=== PATIENT | female | born 1950 | race Caucasian/White ===

== ENCOUNTER → 2016-12-02 | Outpatient (CLI) | payer OTHER, MEDICARE ==
[~2016-12-02] VITALS: Ht 177.8 cm; Wt 152.8 kg
[~2016-12-02] MED LIST: ACETAMINOPHEN325 M1 PO; ACIDOPHILUS1 EAC3 PO; ADVAIR 100-501 EACH INH; ADVAIR 250-501 EACH; ADVAIR 250-501 EACH INH; ADVAIR HFA 115-12 GM INH; ADVAIR HFA115 MCG/21 INH; ALBUTEROL; ALBUTEROL INH INH; ALDACTONE25 MG; ALDACTONE50 MG PO; ALKA-SELTZER P1 EAC2 PO; ALLEGRA180 MG PO; ALLOPURINOL 30300 M1; ALLOPURINOL 30300 M2 PO; AMMONIUM LACTA225 GM TP; APAP500 PO; ASPIRIN81 M2 PO; AVELOX 400 MG400 MG PO; AYR; AYR50 ML NASAL; AYR50 ML NS; B12INJ IM; BACTRIM DS TAB1 EACH; BACTRIM DS TAB1 EACH PO; BIOTENE DRY MO237 ML MM; BISACODYL SUPP10 MG; BISACODYL SUPP10 MG RE; BUMETANIDE2 M1; BUMETANIDE2 M1 PO; CARVEDILOL3.125 MG PO; CEFTRIAXONE2 G1 IV PUSH; CHANTIX 0.5 MG PO; CHANTIX1 MG; CHANTIX1 MG PO; CHLORASEPTIC177 ML PO; CIPRO500 M1 PO; COLACE 100 MG100 MG; COLACE 100 MG100 MG PO; COLACE100 MG PO; COUMADIN 1MG TAB1 M1 PO; COUMADIN 2 MG TA2 M1 PO; COUMADIN 3 MG TA3 M1 PO; COUMADIN 3 MG TA3 MG PO; COUMADIN 4 MG TA4 M1 PO; COUMADIN 5 MG TA5 M1 PO; COUMADIN PO; COUMADIN6 MG PO; CYCLOBENZAPRINE TRANSDERM; DEEP SEA NASAL44 M1 INH; DEEP SEA NASAL44 M1 NASAL; DIAPER RASH57 GM TP; DIGOXIN; DIGOXIN PO; DITROPAN XL10 M1 PO; DOLOPHINE HCL5 MG PO; DOXYCYCLINE 10100 M2 PO; DUONEB 2.5-0.5 M3 ML; DUONEB 2.5-0.5 M3 ML INH; EUCERIN CREME57 GM TOP; FERROUS SULFAT325 M1 PO; FLONASE 0.05%50 MCG INH; FOLIC ACID1 MG PO; FUROSEMIDE 80 M80 MG PO; FUROSEMIDE20 MG/2 ML IV; HYDROCERIN CREA1 JAR TOP; HYDROCODONE-APA1 TA1 PO; HYDROCORTISONE30 G9; INDAPAMIDE2.5 MG PO; IPRATROPIUM; IRON325 PO; K-DUR 20 MEQ T20 MEQ PO; KLOR-CON 1010 MEQ PO; KLOR-CON M2020 MEQ PO; LACTAID EXT4500 UNIT PO; LANOXIN 0.120.125 M1 PO; LASIX 40 MG TAB40 M1 PO; LASIX 40 MG TAB40 M2 PO; LASIX 80 MG TAB80 M1 PO; LASIX 80 MG TAB80 MG PO; LASIX PO; LIORESAL 10 MG10 MG; LIORESAL 10 MG10 MG PO; LOCOID 0.1% CRE15 GM TP; LOPERAMIDE 2 MG2 M1 PO; LORATIDINE 10 M10 M1 PO; MAGNESIUM4 GM/100 M IV; MELOXICAM7.5 MG PO; METHADONE HCL 110 MG PO; METHADONE HCL5 MG PO; METOLAZONE 5 MG5 M1; METOLAZONE 5 MG5 M1 PO; METOPROLOL SUCC25 M1 PO; MILK OF MA2400 MG/10 PO; MINIPRIN81 MG PO; MIRALAX255 GM PO; MOBIC7.5 M1 PO; MUCINEX D TABL1 EAC1 PO; MUCINEX DM TABL1 TA1; MUCINEX TA600 MG/TA1 PO; MUCINEX TA600 MG/TA2 PO; MUCINEX TA600 MG/TAB; MUCINEX600 MG PO; MULTIVITAMIN PO; NUCYNTA100 MG PO; NUCYNTA75 MG PO; NYSTATIN1 EA10 MC; NYSTATIN1 EAC9; NYSTATIN15 GM TOP; NYSTATIN15 GM TP; OMEPRAZOLE 20 M20 M1 PO; OMEPRAZOLE 20 M20 MG PO; OMEPRAZOLE20 M2 PO; OPANA ER15 M1 PO; OXCARBAZEPINE150 MG PO; OXCARBAZEPINE300 MG PO; OXYBUTYNIN 5 MG5 M1 PO; OXYBUTYNIN ER 55 M1 PO; OXYCONTIN CR 1010 M1 PO; OXYCONTIN PO; OXYCONTIN30 MG PO; OXYIR5 MG PO; PEPCID40 MG; PEPCID40 MG PO; POLYETHYLENE G255 GM; POTASSIUM20 PO; PREDNISONE; PREDNISONE 20 M20 MG PO; PROAIR HFA8.5 GM IH; PROAIR HFA8.5 GM PO; PROVENTIL HFA6.7 G1 INH; REQUIP 1 MG TABL1 M1 PO; REQUIP XL2 MG PO; REQUIP2 MG PO; RESTORIL15 M1 PO; RESTORIL15 MG PO; RESTORIL30 MG PO; ROPINIROLE PO; SALINE MIST45 ML NASAL; SALINE NASAL SP30 ML NS; SENNA PLUS TAB1 EACH PO; SENNA PO; SLOW-MAG64 MG PO; SPIRIVA; SPIRIVA INH; SPIRONOLACTONE25 M1 PO; SPIRONOLACTONE50 MG PO; TOPROL XL25 MG PO; TRAMADOL 50 MG50 MG PO; TRILEPTAL 300300 MG PO; TRILEPTAL150 MG PO; TRILEPTAL300 MG PO; TYLENOL325 MG PO; VENTOLIN HFA 1818 GM INH; VOLTAREN GEL 1100 G1 TOP; VOLTAREN GEL 1100 G2 TOP; VOLTAREN100 GM TP; X VIATE 40%; [UNRECOGNIZED DRUG - CODE] PO; [UNRECOGNIZED DRUG - OTHER]; [UNRECOGNIZED DRUG - OTHER] PO; [UNRECOGNIZED DRUG - OTHER] PO; [UNRECOGNIZED DRUG - OTHER] PO; [UNRECOGNIZED DRUG - OTHER] TOP
--- NOTE | ~2016-12-02 | HC ---
[facility] [place] [address] CONSULTATION Name: ADRIEL LOUIS Room #: REG SUSAN Iglesia.#: [id number] Admission: 12/02/16 Attend Phys: Nito Whipple MD Discharge: Date of : 50 Report #: [id number] THIS REPORT FOR: //name// CC: Nito Whipple DATE OF SERVICE: 12/02/2016 TYPE OF REPORT: Wound care outpatient visit. PRIMARY CARE PHYSICIAN: Nito Whipple M.D. CHIEF COMPLAINT: Right knee wound. HISTORY OF PRESENT ILLNESS: This is a 66-year-old white female who is seen in the infusion clinic for a chronic nonhealing wound to her right knee. The patient is currently receiving IV infusion of Lasix, which she does on a weekly basis. The patient has a nonhealing wound on her right knee, which is nearly healed; however, due to her significant lymphedema, is still draining profusely according to herself and her home health nurses. The patient denies fevers, chills, chest pain, shortness of breath, nausea, vomiting or diarrhea. The patient denies any recent illnesses or concerns. CURRENT MEDICATIONS: Reviewed. DRUG ALLERGIES: Multiple, please see the medication list. PHYSICAL EXAMINATION: VITAL SIGNS: Stable. The patient is afebrile. GENERAL: This is alert and oriented times 3, morbidly obese white female who is in no acute distress. HEENT: Normocephalic and atraumatic. Mucous membranes are moist. Pupils are round. Sclerae white. LUNGS: Nonlabored respirations. ABDOMEN: Obese. EXTREMITIES: The patient has 4+ lymphedema, bilateral lower extremities. Evaluation of the right lower extremity reveals over the area of the dorsal part of the knee, a small approximately 0.2 x 0.2 x 0.1 cm wound, which is draining serosanguineous fluid. There are no signs of erythema, warmth or cellulitis. There are no signs or tenderness. There is no tunneling, tracking or undermining. Distal neurovascular otherwise intact. Wound itself 100% granulated. NEUROLOGICAL: Cranial nerves 2 through 12 grossly intact. Motor and sensory are grossly intact. WOUND CARE COURSE: I spoke with the patient at this time given that she is still having persistent drainage and we have recently just in the past [address] [address] CONSULTATION Name: ADRIEL LOUIS Room #: REG SUSAN Short#: [id number] Admission: 12/02/16 Attend Phys: Nito Whipple MD Discharge: Date of : 50 Report #: [id number] started just gauze and ABD and gentamicin ointment to the top over the wound itself to cover them with a 4 x 4s and gauze, changed on a daily was by home health nurses. I will see the patient back in 2 weeks up in the infusion clinic itself. IMPRESSION: 1. 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 2. Chronic lymphedema, bilateral lower extremities. 3. Morbid obesity. 4. Congestive heart failure. PLAN: Described in length as above. I appreciate the ability to see this patient and our plan is to see her again in 2 weeks. <ELECTRONICALLY SIGNED> By: Leon Garcia MD 12/12/16 0824 [id number] Leon Garcia MD /nt
[2016-12-02 10:01] VITALS: BP 124/74
[2016-12-02 16:00] VITALS: BP 124/72
== END ==
LOC: OPONC 02:03
DX: R60.9 Edema, unspecified (principal)
CPT/HCPCS: 95000; 95001

== ENCOUNTER → 2016-12-09 | Outpatient (CLI) | payer OTHER, MEDICARE ==
[2016-12-09 08:30] VITALS: BP 111/74
== END ==
LOC: OPONC 05:21
DX: R60.9 Edema, unspecified (principal)
CPT/HCPCS: 95000; 95001

== ENCOUNTER → 2016-12-12 | Outpatient (CLI) | payer OTHER, MEDICARE ==
--- NOTE | ~2016-12-12 | HPC ---
[facility] [place] [address] [place] [address] [place] [address] PAIN MANAGEMENT CONSULTATION Name: ADRIEL LOUIS Room #: REG SHARAChucky Short#: [id number] Admission: 12/12/16 Attend Phys: Jovan Bolivar DO Discharge: Date of : 50 Report #: [id number] THIS REPORT FOR: //name// CC: Nito Bolivar SUBJECTIVE: The patient is a 66-year-old female well known to the pain clinic, typically treated for neuropathic pain, requiring complex medication management, bipedal neuropathy. She is morbidly obese with congestive heart failure and dramatic lymphedema. She has been stable on methadone 5 mg 1 in the morning, 2 at night; p.r.n. tramadol with rare use of hydrocodone. She returns to the pain clinic today. She has been having a little more difficulty. She apparently developed lesion on her right anterior block. This was excised some 6 weeks ago. Wound healing is quite slow, complicated by her massive lymphedema. She is following with wound clinic. Notes pain is 7-8 on a 0-10 visual analog scale. Notes medications generally provide sufficient analgesia for her to participate in activities of daily living. PHYSICAL EXAMINATION: VITAL SIGNS: A 66-year-old female, BMI is greater than 50 kilograms per meter squared. Subjective pain score 7-8 on a 0-10 visual analog scale. Blood pressure 154/78, pulse 97, respirations 16. NEUROLOGIC: Alert and oriented to person, place and time, judged to be a reasonable historian. He can rise from the chair, has an antalgic gait, again significant lower extremity lymphedema. We reviewed the fact that opiate medications are being used to provide analgesia adequate to support activities of daily living, not attempting to achieve a specific pain score on the 0-10 Visual Analog Scale. The current opiate medications are providing sufficient analgesia to allow the patient to participate in activities of daily living. The patient is not exhibiting any aberrant behavior suggestive of drug diversion. The patient is not having any adverse reactions to medications. The patient is not suffering from daytime somnolence or mental acuity changes. The patient is managing opiate-induced constipation with appropriate [id number] agents and dietary considerations. The patient was counseled on concern for caution with operating a motor vehicle while using opiate medications. A physical exam was performed and the patient's functional status was evaluated. All patients with back pain were advised against the bed rest greater than 4 days and were advised to return to normal activities. Pain score assessment was noted and the treatment plan was reviewed with the patient. All current medications, both prescribed and OTC were reviewed and reconciled on the electronic medical record. Tobacco screening was accomplished and smoking cessation was advised when indicated. BMI was noted and diet/exercise modification was recommended for all patients following outside normal parameters. I reviewed with the patient today their responsibilities to [address] [address] PAIN MANAGEMENT CONSULTATION Name: ADRIEL LOUIS Room #: REG SUSAN Short#: [id number] Admission: 12/12/16 Attend Phys: Jovan Bolivar DO Discharge: Date of : 50 Report #: [id number] prescription medications, reviewed their responsibility to utilize medications only as prescribed by the physician. They are to seek and receive pain medications only from 1 physician group ( [facility]). They are to use 1 pharmacy and keep the clinic informed if they change pharmacies. Their responsibilities include making followup visits in a timely fashion and to avoid abrupt discontinuation of medication usage. Their responsibilities further include bringing their medications (bottles from the pharmacy with residual pills) to the visit for possible confirmation of pill counts and the patient understands it is their responsibility to submit to random drug screens to ensure both that the medications prescribed are present, and that no other controlled substances are present. All prescriptions provided today were generated electronically. ASSESSMENT: Neuropathic pain requiring complex medication management, primarily affecting bilateral lower extremities, massive lymphedema, requiring complex medication management. RECOMMENDATION: After discussion with the patient today, we have elected to continue current medications including methadone 5 mg 1 in the morning, 2 at night; tramadol 50 mg up to 4 times a day, written for 2 refills; hydrocodone 7.5/325, dispensed 120 tablets for a total of 3 months; baclofen 10 mg 4 times a day, written for 5 refills; oxcarbazepine at bedtime 300 mg, written for 2 refills. I wrote 3 discrete prescriptions for the methadone. Follow up in 3 months for reevaluation, earlier if needed. <ELECTRONICALLY SIGNED> By: Jovan Bolivar DO 12/15/16 1228 [id number] Jovan Bolivar DO /nt
[2016-12-12 13:49] VITALS: BP 154/78
== END | disposition home or self-care (01) ==
LOC: PAIN 07:05
DX: G62.9 Polyneuropathy, unspecified (principal); E66.01 Morbid (severe) obesity due to excess calories; I50.9 Heart failure, unspecified; Q82.0 Hereditary lymphedema

== ENCOUNTER → 2017-02-10 | Outpatient (CLI) | payer OTHER, MEDICARE ==
--- NOTE | ~2017-02-10 | HC ---
[facility] [place] [address] CONSULTATION Name: ADRIEL LOUIS Room #: REG SUSAN ErwinLi.#: [id number] Admission: 02/10/17 Attend Phys: Nito Whipple MD Discharge: Date of : 50 Report #: [id number] THIS REPORT FOR: //name// CC: Nito Whipple CHIEF COMPLAINT: Right lower extremity lymphedema and ulceration and wound. HISTORY OF PRESENT ILLNESS: This is a 66-year-old white female with history of morbid obesity and massive lymphedema of bilateral lower extremities, who has a chronic nonhealing wound around the right knee with significant concern for underlying infection with a total knee joint. The patient has currently been receiving IV Lasix infusions. I have been following her approximately every 2 weeks here at the hospital. The patient today states she has increased pain associated with the wound as well as increase in her overall swelling in that right leg especially around the knee. The nurses were concerned that they thought the wound had a slight odor; however, the patient denies this on her own. The patient states that she has had no fevers or chills. However, the patient states that she does not get fevers and chills evening when she has bad infection. The patient is currently on chronic doxycycline 100 mg b.i.d. The patient denies chest pain, shortness of breath, nausea, vomiting or diarrhea. The patient denies any other associated symptoms. PAST MEDICAL HISTORY: Reviewed. CURRENT MEDICATIONS: Reviewed. DRUG ALLERGIES: MULTIPLE, I REVIEWED THE PATIENT'S MEDICATION LIST. PHYSICAL EXAMINATION: VITAL SIGNS: Stable. The patient is afebrile. GENERAL: This is an alert and oriented x 3, pleasant white female who is in mild distress secondary to pain. HEENT: Normocephalic, atraumatic. Mucous membranes are moist. Pupils are round. LUNGS: Show nonlabored respirations. ABDOMEN: Obese, soft, nontender. EXTREMITIES: Evaluation of right lower extremity reveals 4+ lymphedema with weeping coming from the right medial knee wound. The weeping is serous in nature. There are no signs of any purulence or odor that I can appreciate. The wound depths approximately 3 cm. Periwound is mildly erythematous, but not significantly warm. There is no actual tenderness to palpation around that site. There is no fluctuance. Distal neurovascular is intact. NEUROLOGIC: Cranial nerves 2-12 grossly intact. Motor and sensory grossly intact. WOUND CARE COURSE: I spoke with the physician, Dr. Wihpple, reviewed the findings with him. At this time, he said he will contact the patient and go [address] [address] CONSULTATION Name: ADRIEL LOUIS Room #: REG SUSAN Short#: [id number] Admission: 02/10/17 Attend Phys: Nito Whipple MD Discharge: Date of : 50 Report #: [id number] visit her at her nursing facility within the next 1-2 days. The patient had been possibly requesting a hospitalization; however, he would like to see her first and evaluate at that time. The patient has requested possible new hospital bed or mattress to be delivered at home so that could be lowered to the floor to help her get in and out of bed more easily. We will look into this hospital bed with new mattress through [employer]. IMPRESSION: 1. Chronic nonhealing wound to the right medial knee limited to subcutaneous fat layer. 2. 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 3. Morbid obesity. 4. Massive bilateral lower extremity lymphedema. PLAN: We will continue on the doxycycline has previously setup. We will continue with dressing changes, which is dry gauze per home health nurses. Dr. Whipple will see the patient later this week and will follow the patient. If patient does get admitted to [facility], which is her hospital of choice, I will follow her there. By: [id number] Leon Garcia MD /nt
[2017-02-10 08:00] VITALS: BP 142/85
== END ==
LOC: OPONC 06:26
DX: I89.0 Lymphedema, not elsewhere classified (principal); E66.01 Morbid (severe) obesity due to excess calories
CPT/HCPCS: 95000; 95001

== ENCOUNTER → 2017-02-24 | Outpatient (CLI) | payer OTHER, MEDICARE ==
[2017-02-24 09:00] VITALS: BP 135/87
== END ==
LOC: OPONC 06:28
DX: I89.0 Lymphedema, not elsewhere classified (principal)
CPT/HCPCS: 95000; 95001